=== PATIENT | female | born 1960 | race Two or more races ===

== ENCOUNTER 2021-09-02 09:18 | Emergency (ER) | payer OTHER ==
[~2021-09-02] VITALS: Ht 152.4 cm; Wt 74.4 kg
[2021-09-02] MEDS ORDERED: COZAAR50 MG PO (09:38)
[2021-09-02] MEDS ORDERED: HYDROCHLOROTH12.5 MG PO (09:38)
[2021-09-02] MEDS ORDERED: SYNTHROID88 MCG PO (09:38)
[2021-09-02] MEDS ORDERED: METFORMIN HCL500 M3 PO (09:39)
== END 2021-09-02 11:59 | disposition home or self-care (01) ==
LOC: ER 09:18
DX: N39.0 Urinary tract infection, site not specified (principal); R10.9 Unspecified abdominal pain

== ENCOUNTER 2022-08-29 17:39 | Emergency (ER) | payer OTHER ==
[~2022-08-29] VITALS: Ht 157.5 cm; Wt 72.1 kg
[~2022-08-29 17:39] MED LIST: COZAAR50 MG PO; HYDROCHLOROTH12.5 MG PO; METFORMIN HCL500 M3 PO; SYNTHROID88 MCG PO
== END 2022-08-29 19:11 | disposition home or self-care (01) ==
LOC: ER 17:39
DX: R25.2 Cramp and spasm (principal)

== ENCOUNTER 2025-02-05 13:55 | Emergency (ER) | payer OTHER ==
[~2025-02-05] VITALS: Ht 157.5 cm; Wt 72.6 kg
[2025-02-05] MEDS ORDERED: XANAX0.25 MG PO (14:00)
[2025-02-05] MEDS ORDERED: ZOLOFT25 MG PO (14:00)
[2025-02-05] MEDS ORDERED: NORVASC5 MG PO (14:00)
[2025-02-05] MEDS ORDERED: ACETAMINOPHEN 500 MG GEL..CAP PO ONE (15:30)
[2025-02-05 16:24] LABS: BASO % 0.6 % (0.1-1.2); EOS # 0.18 (0.04-0.54); EOS % 2.1 % (0.7-7.0); LYMPH # 2.84 (1.18-3.74); LYMPH % 33.5 % (19.3-53.1); MEAN PLATELET VOLUME 9.50 fl (9.4-12.4); MONO # 0.71 (0.24-0.82); MONO % 8.4 % (4.7-12.5); NEUT # 4.70 (1.56-6.13); NEUT % 55.3 % (34.0-71.1); RED CELL DISTRIBUTION WIDTH 14.1 % (11.6-14.4)
[2025-02-05 17:17] LABS: ALT/SGPT 53.0 U/L (12-78); AST/SGOT 37.0 U/L (15-37); BILIRUBIN TOTAL 0.18 mg/dL (0.3-1.2); BUN CREA RATIO 24.0 (7.0-25.0); CREATININE SERUM 0.7 mg/dL (0.55-1.02); GFR 84.79; GLOBULINA 4.1 G/DL (2.4-3.5); GLUCOSE FASTING 104.0 mg/dL (65-100); OSMOLALITY SERUM 289.0 MOSM/KG (275-295)
[2025-02-05 17:38] LABS: COVID-19 AG NEGATIVE (NEGATIVE)
[2025-02-05 17:50] LABS: URINE APPEARANCE Clear; URINE BILIRRUBIN Negative (NEGATIVE); URINE BLOOD Negative; URINE COLOR Yellow; URINE GLUCOSE Negative (NEGATIVE); URINE KETONE Negative (NEGATIVE); URINE LEUKOCYTE Negative; URINE NITRATE Negative; URINE PROTEIN Negative (NEGATIVE); URINE UROBILINOGEN 0.2 E.U./dl
[2025-02-05 17:54] LABS: URINE BACTERIA 105.6 uL (0.0-1933); URINE EPITHELIAL CELLS 4.1 uL (0.0-38.8); URINE RBC 3.2 uL (0.0-20.8)
[2025-02-05 17:56] LABS: URINE CAST 0.00 uL (0.0-1.40); URINE WBC 1.5 uL (0.0-23.2)
[2025-02-05] MEDS ORDERED: BUTALBIT-ACETA1 EACH PO (18:23)
[2025-02-05] MEDS ORDERED: BUTALB/ACETAMINOPHEN/CAFFEINE 1 TAB TABLET PO ONE (18:30)
== END 2025-02-05 19:24 | disposition home or self-care (01) ==
LOC: ER 13:55
PROVIDERS: Emergency Medicine
DX: R51.9 Headache, unspecified (principal); B34.9 Viral infection, unspecified; I10 Essential (primary) hypertension; E03.8 Other specified hypothyroidism; Z20.822 Contact with and (suspected) exposure to COVID-19